=== PATIENT | female | born 1955 | race Caucasian/White ===

== ENCOUNTER 2016-03-11 22:08 | Emergency (ER) | payer OTHER ==
[~2016-03-11] VITALS: Ht 152.4 cm; Wt 87.7 kg
[~2016-03-11 22:08] MED LIST: AZIT500T3 PO
[2016-03-11 22:19] VITALS: TEMP 36.8; Ht 152.4 cm; Wt 87.7 kg
[2016-03-11] MEDS ORDERED: [UNRECOGNIZED DRUG - CODE] PO (22:31)
[2016-03-11] MEDS ORDERED: ACET-1256 PO (22:31)
--- NOTE | 2016-03-11 23:09 | DIAGNOSTIC IMAGING REPORT ---
CHEST 2 VIEWS ROUTINE HISTORY: cough COMPARISON: Chest 02/18/2015. FINDINGS: The lungs are clear. Cardiac silhouette is normal in size. No pleural effusions. No pneumothorax. IMPRESSION: No acute process. Electronically signed by: Gus Putnam M.D. 03/11/2016 11:07 PM Dictated Date/Time: 03/11/2016 11:06 PM
[2016-03-11] MEDS ORDERED: AZITHROMYCIN 250 MG TAB PO STA (23:33)
[2016-03-11] MEDS ORDERED: BENZ100C18 PO (23:36)
[2016-03-11] MEDS ORDERED: ZTHM250 PEG (23:36)
[2016-03-11] MEDS ORDERED: BENZONATATE 100MG CAP PO ONE (23:45)
[2016-03-11 23:50] VITALS: BP 140/87; PULSE 90; O2SAT 94
--- NOTE | 2016-03-12 01:14 | EMERGENCY ROOM VISIT NOTE ---
History Report prepared by Jacquelyn: Jeremy Avalos Under the Supervision of: Carl PeraltaO. First contact with patient: 22:22 Chief Complaint: OTHER COMPLAINT Stated Complaint: WEAK, COUGH, CONGESTION, RUNNY NOSE History of Present Illness The patient is a 60 year old female who presents to the Emergency Room with complaints of a persistent cough that began 6 days ago. The patient states that she began to be ill at this time. It began with a cough, rhinorrhea, congestion , a fatigue. She managed her symptoms with over the counter medication, fluids, and rest. She felt better before work today, but once she got to work she began to feel worse. Her sputum turned from green to yellow. She then began to have chills, diaphoresis, and nausea. She denies any fever, vomiting, diarrhea, shortness of breath, and chest pain. She denies a history of asthma or COPD. she has no chest pain or shortness of breath. Source of History: patient Onset: 6 days ago Position: other (Respiratory System) Symptom Intensity: moderate Quality: other (cough) Timing: other (persistent) Associated Symptoms: + chills, + cough, + diaphoresis, + nausea, No SOB, No chest pain, No diarrhea, No fevers, No sorethroat, No vomiting Note: She has associated rhinorrhea and congestion. Review of Systems See HPI for pertinent positives & negatives. A total of 10 systems reviewed and were otherwise negative. Past Medical & Surgical Medical Problems: (1) Bronchitis (2) Hyperlipidemia Family History Patient reports no known family medical history. Social History Smoking Status: Never Smoker Smokeless Tobacco Use: No Alcohol Use: none Drug Use: none Housing Status: lives with family Occupation Status: employed Current/Historical Medications Scheduled Acetaminophen (Tylenol), 1,000 MG PO DIRECTED Azithromycin (Azithromycin), 250 MG PEG DAILY Benzonatate (Tessalon Perles), 100 MG PO TID Nxuazaacaygsh-Fcnwckbebe-Hq-Gu (Mucinex Sinus-Max Day/Nig), 1 CAP PO DIRECTED Allergies Coded Allergies: No Known Allergies (Verified , 03/11/16) Physical Exam Vital Signs Date Time Temp Pulse Resp B/P Pulse Ox O2 Delivery O2 Flow Rate FiO2 03/11/16 23:50 90 20 140/87 94 03/11/16 22:19 36.8 92 18 130/84 97 Room Air Physical Exam GENERAL: alert, well appearing, well nourished, no distress, non-toxic, sitting up in bed, dry cough EYE EXAM: normal conjunctiva OROPHARYNX: no exudate, no erythema, lips, buccal mucosa, and tongue normal and mucous membranes are moist NECK: supple, no nuchal rigidity, no adenopathy, non-tender LUNGS: Clear to auscultation. Normal chest wall mechanics HEART: no murmurs, S1 normal and S2 normal ABDOMEN: abdomen soft, non-tender, normo-active bowel sounds, no masses, no rebound or guarding. BACK: Back is symmetrical on inspection and there is no deformity, no midline tenderness, no CVA tenderness. SKIN: no rashes and no bruising UPPER EXTREMITIES: upper extremities are grossly normal. LOWER EXTREMITIES: Calves are equal bilaterally. NEURO EXAM: Normal sensorium, cranial nerves II-XII grossly intact, normal speech, no gross weakness of arms, no gross weakness of legs. Medical Decision & Procedures ER Provider Diagnostic Interpretation: Radiology results have been interpreted by the radiologist and reviewed by me. CHEST 2 VIEWS ROUTINE HISTORY: cough COMPARISON: Chest 02/18/2015. FINDINGS: The lungs are clear. Cardiac silhouette is normal in size. No pleural effusions. No pneumothorax. IMPRESSION: No acute process. Electronically signed by: Gus Putnam M.D. 03/11/2016 11:07 PM Dictated Date/Time: 03/11/2016 11:06 PM Laboratory Results Test 03/11/16 22:34 Influenza Type A Antigen Neg for Influ A (NEG) Influenza Type B Antigen Neg for Influ B (NEG) Laboratory results per my review. Medications Administered Medications (Trade) Dose Ordered Sig/Sophie Route Start Time Stop Time Status Last Admin Dose Admin Azithromycin (Zithromax Tab) 500 mg NOW STAT PO 03/11/16 23:33 03/11/16 23:34 DC 03/11/16 23:33 500 MG Benzonatate (Tessalon Perles Cap) 100 mg NOW ONCE PO 03/11/16 23:45 03/11/16 23:46 DC 03/11/16 23:46 100 MG ED Course ED COURSE: Vital signs were reviewed and showed nothing abnormal. The patients medical record was reviewed The above diagnostic studies were performed and reviewed. ED treatments and interventions as stated above. 2222: The patient was evaluated in room C1. A complete history and physical examination was performed. 2333: Azithromycin 500 mg PO 2345: Benzonatate 100 mg PO 2345: Upon reevaluation, the patient is resting comfortably. I discussed my findings with the patient and she understands and agrees with the treatment plan. The patient remained stable while under my care. The patient appeared well at the time of discharge. Medical Decision Differential diagnosis: Etiologies such as viral syndrome, otitis, pharyngitis, pneumonia, influenza, meningitis, urinary tract infection, sepsis, bacteremia, as well as others were entertained. Patient is a 60-year-old female who presents the ER for productive cough which has been worsening over the past week. She denies any recorded fevers but does admitted to chills. No other medical problems. On exam lungs are clear. She is well-appearing. Vitals are stable. No chest pain or shortness breath. Chest x-ray shows no focal infiltrate. History is consistent with bronchitis. She was given Tessalon Perles as it and discharged on azithromycin to follow with her primary care doctor. Discussed with Pt concerning signs and symptoms to watch out for. Pt was instructed to follow up with their PCP and discussed with the patient their option to return to the ED at anytime for persistent or worsening symptoms. The appropriate anticipatory guidance and out-patient management, including indications for return to the emergency department, were explained at length to the patient and understood. Impression Primary Impression: Bronchitis Scribe Attestation The scribe's documentation has been prepared under my direction and personally reviewed by me in its entirety. I confirm that the note above accurately reflects all work, treatment, procedures, and medical decision making performed by me. Departure Information Dispostion Home / Self-Care Prescriptions Benzonatate (TESSALON PERLES) 100 Mg Cap 100 MG PO TID, #30 CAP Prov: Benji Headley, DO 03/11/16 Azithromycin (Azithromycin) 250 Mg Tab 250 MG PEG DAILY, #4 Prov: Benji Headley, DO 03/11/16 Referrals No Doctor, Assigned (PCP) Vaughn Quezada M.D. Forms HOME CARE DOCUMENTATION FORM, IMPORTANT VISIT INFORMATION, WORK / SCHOOL INSTRUCTIONS Patient Instructions A Signature Page, ED Bronchitis Abx Tx, My [facility] Additional Instructions Please follow up with your primary care doctor with in the next 24 hours. Any worsening of your symptoms, please return to the ED immediately. This includes fevers greater than 100.4, chest pain, shortness of breath, or any other concerning signs or symptoms from your standpoint. Please take antibiotic as prescribed. Please take Tessalon Perles as prescribed for coughing.
== END 2016-03-11 23:52 | disposition home or self-care (01) ==
LOC: C.EDB 22:09 → C.EDC 23:52
DX: J40 Bronchitis, not specified as acute or chronic (principal); E78.5 Hyperlipidemia, unspecified

== ENCOUNTER 2016-05-25 10:09 | Emergency (ER) | payer OTHER ==
[~2016-05-25] VITALS: Ht 152.4 cm; Wt 84.9 kg
[~2016-05-25 10:09] MED LIST changes: +ACET-1256 PO; -AZIT500T3 PO; +ZTHM250 PEG; +[UNRECOGNIZED DRUG - CODE] PO
[2016-05-25 10:18] VITALS: Ht 152.4 cm; Wt 84.9 kg
--- NOTE | 2016-05-25 11:45 | DIAGNOSTIC IMAGING REPORT ---
TWO VIEW CHEST CLINICAL HISTORY: Cough. Myalgias. FINDINGS: PA and lateral chest radiographs are compared to study dated 03/11/2016. The cardiomediastinal silhouette is unremarkable. The lungs and pleural spaces are clear. There is no pneumothorax. The bony thorax appears intact. IMPRESSION: No active disease in the chest. Electronically signed by: Uche Lang M.D. 05/25/2016 11:43 AM Dictated Date/Time: 05/25/2016 11:43 AM
[2016-05-25 11:52] VITALS: TEMP 36.9
[2016-05-25] MEDS ORDERED: AZITTAB PO (12:25)
[2016-05-25 12:30] VITALS: BP 138/85; PULSE 85; O2SAT 97
--- NOTE | 2016-05-25 17:09 | EMERGENCY ROOM VISIT NOTE ---
ED Visit Note First contact with patient: 10:57 CHIEF COMPLAINT: Cough and body aches HISTORY OF PRESENT ILLNESS: This 61-year-old white female patient complains of one day of gradual onset of an intermittent cough, non- productive. Her chest feels congested. She states it started in her head and has now moved to her chest. She complains of body aches but developed abruptly yesterday. She works here in the hospital. She did have her influenza vaccine. There is some discomfort under the sternum with coughing but no other chest pain. There have been no chills or shortness of breath. She denies any asthma, COPD, or emphysema. The patient does not smoke. No fevers that she is aware of. No nausea, vomiting, or diarrhea. No back pain. No other treatment. She is supposed to fly to [place] on Friday. REVIEW OF SYSTEM: HEENT: No dizziness, visual problems, hearing loss, or tinnitus. There is no difficulty swallowing and no oral lesions are present. LYMPH: No adenopathy. PULMONARY: No sputum production or hemoptysis. CARDIOVASCULAR: No chest pain, palpitations, or peripheral edema. GASTROINTESTINAL: No diarrhea, constipation, nausea, vomiting, or abdominal pain. GENITOURINARY: No dysuria, frequency, urgency or nocturia. NEUROLOGIC: No weakness, muscle tenderness, epilepsy or history of neurological problems. MUSCULOSKELETAL: No history of joint tenderness/swelling. No history of arthritis or arthralgias. SKIN: No rashes or lesions. PSYCHIATRIC: No history of depression or mental illness. ENDOCRINE: No history of diabetes, thyroid disorders, or abnormal hair growth. PMH: The patient is healthy; there is no significant medical or surgical history. Family history: Noncontributory. SOCIAL HISTORY: Patient lives at home with her . . Employed here in the hospital. No tobacco use. Current medications: Tylenol Allergies: NKDA PHYSICAL EXAM: Vital Signs: Reviewed Nurse's notes. Afebrile. MENTAL STATUS: Alert, oriented, coherent. Skin: Warm and dry with good turgor. No rashes or lesions. No ecchymosis or erythema. The patient is not diaphoretic. No abrasions. NECK: Supple, non-tender. CHEST: Good expansion bilaterally, symmetrical, no retractions. HEART: Regular and normal heart sounds, no murmur , gallop or rub. LUNGS: Breath sounds clear and equal bilaterally. The breath sounds are coarse but there are no rales, wheezes or areas of absent air entry. HEENT: Normocephalic atraumatic. Eyes PERRLA, EOMI. No conjunctiva or scleral injection. Ears TMs intact bilaterally with good light reflexes. No erythema or bulging. No hemotympanum. Canals are patent. Nares patent bilaterally without turbinate enlargement. No significant drainage. No epistaxis. Oropharynx without erythema or exudate. Uvula midline, oral mucosa moist. No lesions present. Minor postnasal drip. Lymphatics are palpated without anterior or posterior chain enlargement or tenderness. EMERGENCY DEPARTMENT COURSE: Chest x-ray obtained today was read by radiology as negative for pneumonia. DIAGNOSIS: Acute bronchitis DISCHARGE INSTRUCTIONS AND TREATMENT: Patient and her were educated regarding today's findings. Conservative care measures were discussed. She has had bronchitis in the past. She states she has taken a Z-Jordan in the past with good results. Prescription was provided for a Z-Jordan, to be used if symptoms are not improving over the next 48 hours. Maintain hydration. Tylenol and Motrin every 6 hours as needed for body aches. Return to the ED for any acute changes. She may use a cool mist humidifier to ease breathing. Start Delsym syrup 2 times a day as needed for cough. Bronchitis handout was provided. Problem List Medical Problems: (1) Bronchitis Status: Resolved (2) Hyperlipidemia Status: Chronic Current/Historical Medications Scheduled Azithromycin (Zithromax Z-Jordan), 1 PKT PO UD Allergies Coded Allergies: No Known Allergies (Verified , 03/11/16) Vital Signs Date Time Temp Pulse Resp B/P Pulse Ox O2 Delivery O2 Flow Rate FiO2 05/25/16 12:30 85 16 138/85 97 Room Air 05/25/16 11:52 36.9 85 16 138/68 95 Room Air 05/25/16 10:18 37.1 93 18 140/84 95 Room Air 05/25/16 10:18 97 Room Air Departure Information Impression Primary Impression: Acute bronchitis Dispostion Home / Self-Care Condition GOOD Prescriptions Azithromycin (ZITHROMAX Z-JORDAN) 250 Mg Tab 1 PKT PO UD for 5 Days, #6 TAB Prov: Clifton Danielle,P.A. 3/25/17 Forms HOME CARE DOCUMENTATION FORM, COOL MIST HUMIDIFIER, MOTRIN USE, TYLENOL USE, IMPORTANT VISIT INFORMATION Patient Instructions Bronchitis Acute, My [facility] Additional Instructions Maintain hydration Rest as needed Delsym syrup 2 teaspoons every 12 hours as needed for cough Zithromax Z-Jordan- take daily 5 days Follow-up with your PCP as needed or return to the ED for any other concerns Tylenol and Motrin every 6 hours as needed for aches/fever
== END 2016-05-25 12:31 | disposition home or self-care (01) ==
LOC: C.EDB 10:10 → C.EDA 12:31
DX: J20.9 Acute bronchitis, unspecified (principal)